=== PATIENT | female | born 2000 | race American Indian/Alaskan Native ===

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

== ENCOUNTER 2018-11-11 12:51 | Emergency (ER) | payer OTHER ==
[2018-11-11 13:00] VITALS: BP 146/88
--- NOTE | 2018-11-11 13:02 | Event Note ---
ED Screening Note Date of service: 11/11/18 Time: 12:58 ED Screening Note: 18 y/o female comes in for intermittent chest pain, Hives headache Took Advail. No chest pain in 2 days. This initial assessment/diagnostic orders/clinical plan/treatment(s) is/are subject to change based on patients health status, clinical progression and re- assessment by fellow clinical providers in the ED. Further treatment and workup at subsequent clinical providers discretion. Patient/guardian urged not to elope from the ED as their condition may be serious if not clinically assessed and managed. Initial orders include:
--- NOTE | 2018-11-11 13:29 | XRay Report ---
CHEST 1 VIEW 11/11/2018 1:10 PM INDICATION / CLINICAL INFORMATION: Chest pain, shortness of breath. COMPARISON: None available. FINDINGS: SUPPORT DEVICES: None. HEART / MEDIASTINUM: No significant abnormality. LUNGS / PLEURA: No significant pulmonary or pleural abnormality. No pneumothorax. ADDITIONAL FINDINGS: No significant additional findings. IMPRESSION: 1. No acute findings. Signer Name: Elieser Holly MD Signed: 11/11/2018 1:24 PM Workstation Name: [id number]
--- NOTE | 2018-11-11 13:54 | Emergency Department Report ---
ED General Adult HPI - General Chief complaint: Headache Stated complaint: CHEST PAIN/HEADACHE/HIVES Time Seen by Provider: 11/11/18 13:50 Source: patient Mode of arrival: Ambulatory Limitations: No Limitations - History of Present Illness Initial comments: 18 y/o female comes in for intermittent chest pain, Hives headache Took Advail. No chest pain in 2 days. denies any chest pain, sob, n/v. -: Gradual Location: head Radiation: non-radiation Severity scale (0 -10): 5 Quality: aching Consistency: intermittent Improves with: none Worsens with: none Associated Symptoms: denies other symptoms Treatments Prior to Arrival: NSAID - Related Data Previous Rx's Medication Instructions Recorded Last Taken Type Ibuprofen [Motrin 600 MG tab] 600 mg PO Q8H PRN #30 tablet 12/23/16 Unknown Rx Ibuprofen [Motrin] 800 mg PO Q8HR PRN #12 tablet 11/11/18 Unknown Rx Prednisone [predniSONE 5 mg (6-Day 5 mg PO .TAPER #1 tab.ds.pk 11/11/18 Unknown Rx Pack, 21 Tabs)] Allergies Allergy/AdvReac Type Severity Reaction Status Date / Time No Known Allergies Allergy Unverified 12/23/16 14:28 ED Review of Systems ROS: Stated complaint: CHEST PAIN/HEADACHE/HIVES Other details as noted in HPI Comment: All other systems reviewed and negative Cardiovascular: chest pain Endocrine: denies: see HPI, excessive sweating Gastrointestinal: denies: nausea Genitourinary: denies: urgency Skin: rash Neurological: headache ED Past Medical Hx - Past Medical History Previous Medical History?: Yes Additional medical history: OBESITY - Surgical History Past Surgical History?: No - Family History Family history: no significant - Social History Smoking Status: Never Smoker Substance Use Type: Marijuana - Medications Home Medications: Home Medications Medication Instructions Recorded Confirmed Last Taken Type Ibuprofen [Motrin 600 MG tab] 600 mg PO Q8H PRN #30 tablet 12/23/16 Unknown Rx Ibuprofen [Motrin] 800 mg PO Q8HR PRN #12 tablet 11/11/18 Unknown Rx Prednisone [predniSONE 5 mg (6-Day 5 mg PO .TAPER #1 tab.ds.pk 11/11/18 Unknown Rx Pack, 21 Tabs)] ED Physical Exam - General Limitations: No Limitations General appearance: alert, in no apparent distress - Head Head exam: Present: atraumatic, normocephalic - Eye Eye exam: Present: normal appearance, PERRL, EOMI Pupils: Present: normal accommodation - ENT ENT exam: Present: normal exam - Neck Neck exam: Present: normal inspection - Respiratory Respiratory exam: Present: normal lung sounds bilaterally - Cardiovascular Cardiovascular Exam: Present: regular rate, normal rhythm - GI/Abdominal GI/Abdominal exam: Present: soft, normal bowel sounds - Extremities Exam Extremities exam: Present: normal inspection, full ROM - Back Exam Back exam: Present: normal inspection, full ROM - Neurological Exam Neurological exam: Present: alert, oriented X3 - Psychiatric Psychiatric exam: Present: normal affect - Skin Skin exam: Present: warm ED Course Vital Signs 11/11/18 12:58 Temperature 97.5 F L Pulse Rate 110 H Respiratory 18 Rate Blood Pressure 146/88 O2 Sat by Pulse 97 Oximetry Critical care attestation.: If time is entered above; I have spent that time in minutes in the direct care of this critically ill patient, excluding procedure time. ED Disposition Clinical Impression: Hives of unknown origin Headache Qualifiers: Headache type: tension-type Headache chronicity pattern: acute headache Intractability: not intractable Qualified Code(s): G44.209 - Tension-type headache, unspecified, not intractable Chest pain Qualifiers: Chest pain type: other chest pain Qualified Code(s): R07.89 - Other chest pain; R07.8 - Other chest pain Disposition: -01 TO HOME OR SELFCARE Is pt being admited?: No Does the pt Need Aspirin: No Condition: Stable Instructions: Chest Pain (ED) Prescriptions: Ibuprofen [Motrin] 800 mg PO Q8HR PRN #12 tablet PRN Reason: Headache Prednisone [predniSONE 5 mg (6-Day Pack, 21 Tabs)] 5 mg PO .TAPER #1 tab.ds.pk
== END 2018-11-11 14:00 | disposition home or self-care (01) ==
LOC: ED 12:51
DX: L50.9 Urticaria, unspecified (principal); R07.9 Chest pain, unspecified; R51 Headache; F12.90 Cannabis use, unspecified, uncomplicated; Z79.899 Other long term (current) drug therapy
CPT/HCPCS: 71046; 99283

== ENCOUNTER 2019-12-22 11:14 | Emergency (ER) | payer OTHER ==
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
[2019-12-22 12:10] VITALS: BP 146/87
--- NOTE | 2019-12-22 12:54 | XRay Report ---
RIGHT FOOT 2 VIEW(S) INDICATION / CLINICAL INFORMATION: MAIN COMPARISON: None available. FINDINGS: BONES / JOINT(S): No acute fracture or subluxation. No significant arthritis. SOFT TISSUES: No significant abnormality. ADDITIONAL FINDINGS: None. Signer Name: Mane Sidhu MD Signed: 12/22/2019 12:49 PM Workstation Name: [id number]
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
== END 2019-12-22 15:22 | disposition home or self-care (01) ==
LOC: ED 11:14
DX: S97.81XA Crushing injury of right foot, initial encounter (principal); Z79.1 Long term (current) use of non-steroidal anti-inflammatories (NSAID); Z79.899 Other long term (current) drug therapy; V03.90XA Pedestrian on foot injured in collision with car, pick-up truck or van, unspecified whether traffic or nontraffic accident, initial encounter; Y93.89 Activity, other specified; Y92.410 Unspecified street and highway as the place of occurrence of the external cause; Y99.8 Other external cause status

== ENCOUNTER 2020-11-28 16:17 | Emergency (ER) | payer OTHER ==
[2020-11-29 00:45] VITALS: BP 170/90
== END 2020-11-29 01:40 | disposition home or self-care (01) ==
LOC: ED 16:17
DX: M54.5 Low back pain (principal); N39.0 Urinary tract infection, site not specified; E66.9 Obesity, unspecified
CPT/HCPCS: 36415; 80053; 81001; 84703; 85025; 99283; 99284

== ENCOUNTER 2021-03-14 16:31 | Emergency (ER) | payer OTHER ==
[2021-03-14 16:39] VITALS: BP 142/83
--- NOTE | 2021-03-14 17:34 | Emergency Department Report ---
ED General Adult HPI - General Chief complaint: Urogenital-Female Stated complaint: STD Testing Source: patient Mode of arrival: Ambulatory Limitations: No Limitations - History of Present Illness Initial comments: 21-year-old -[place] female patient without past medical history presents for STI screening. Patient reports that she recently found out her partner is sexually active with other women and is wanting to get checked out today. She denies any vaginal discharge, dyspareunia, vaginal bleeding, dysuria/hematuria/urinary frequency, or abdominal/pelvic pain. No fever/chills/sweats, throat pain, or swollen painful joints per patient. Severity scale (0 -10): 0 - Related Data Previous Rx's Medication Instructions Recorded Last Taken Type Ibuprofen [Motrin 600 MG tab] 600 mg PO Q8H PRN #30 tablet 12/23/16 Unknown Rx Prednisone [predniSONE 5 mg (6-Day 5 mg PO .TAPER #1 tab.ds.pk 11/11/18 Unknown Rx Pack, 21 Tabs)] hydrOXYzine HCL [Atarax] 25 mg PO Q6HR PRN #20 tablet 12/22/19 Unknown Rx predniSONE [Deltasone] 50 mg PO QDAY #7 tab 12/22/19 Unknown Rx Ibuprofen [Motrin 800 MG tab] 800 mg PO Q8HR PRN #30 tablet 11/29/20 Unknown Rx Ondansetron [Zofran Odt] 4 mg PO Q8HR PRN #15 tab.rapdis 11/29/20 Unknown Rx Sulfamethoxazole/Trimethoprim 1 each PO Q12H #20 tablet 11/29/20 Unknown Rx [Bactrim DS TAB] Allergies Allergy/AdvReac Type Severity Reaction Status Date / Time No Known Allergies Allergy Unverified 12/23/16 14:28 ED Review of Systems ROS: Stated complaint: STD Testing Other details as noted in HPI Constitutional: denies: diaphoresis, fever, malaise Gastrointestinal: denies: abdominal pain Genitourinary: denies: urgency, dysuria, frequency, hematuria, discharge, abnormal menses, dyspareunia Skin: denies: rash, lesions, change in color Hematological/Lymphatic: denies: swollen glands ED Past Medical Hx - Past Medical History Additional medical history: OBESITY - Social History Smoking Status: Never Smoker Substance Use Type: None - Medications Home Medications: Home Medications Medication Instructions Recorded Confirmed Last Taken Type Ibuprofen [Motrin 600 MG tab] 600 mg PO Q8H PRN #30 tablet 12/23/16 Unknown Rx Prednisone [predniSONE 5 mg (6-Day 5 mg PO .TAPER #1 tab.ds.pk 11/11/18 Unknown Rx Pack, 21 Tabs)] hydrOXYzine HCL [Atarax] 25 mg PO Q6HR PRN #20 tablet 12/22/19 Unknown Rx predniSONE [Deltasone] 50 mg PO QDAY #7 tab 12/22/19 Unknown Rx Ibuprofen [Motrin 800 MG tab] 800 mg PO Q8HR PRN #30 tablet 11/29/20 Unknown Rx Ondansetron [Zofran Odt] 4 mg PO Q8HR PRN #15 tab.rapdis 11/29/20 Unknown Rx Sulfamethoxazole/Trimethoprim 1 each PO Q12H #20 tablet 11/29/20 Unknown Rx [Bactrim DS TAB] ED Physical Exam - General Limitations: No Limitations General appearance: alert, in no apparent distress - Head Head exam: Present: atraumatic, normocephalic - Eye Eye exam: Present: normal appearance - Respiratory Respiratory exam: Absent: respiratory distress - Cardiovascular Cardiovascular Exam: Present: regular rate - GI/Abdominal GI/Abdominal exam: Absent: tenderness - Neurological Exam Neurological exam: Present: alert, oriented X3 - Psychiatric Psychiatric exam: Present: normal affect, normal mood - Skin Skin exam: Present: warm, dry, intact, normal color. Absent: rash ED Course Vital Signs 03/14/21 16:38 Temperature 98.2 F Pulse Rate 73 Respiratory 16 Rate Blood Pressure 142/83 [Right] O2 Sat by Pulse 100 Oximetry ED Medical Decision Making - Medical Decision Making 21-year-old -[place] female patient without past medical history presents for STI screening. Patient reports that she recently found out her partner is sexually active with other women and is wanting to get checked out today. She denies any vaginal discharge, dyspareunia, vaginal bleeding, dysu darrell/hematuria/urinary frequency, or abdominal/pelvic pain. No fever/chills/sweats, throat pain, or swollen painful joints per patient. Given patient is asymptomatic, I recommend she follows up with [facility], PCP, or the health department for STI screening. She is otherwise well-appearing, her vitals are within normal limits, she is stable for discharge home. Discussed in detail with patient signs and symptoms that should prompt immediate return to the ED, she verbalizes understanding. Critical care attestation.: If time is entered above; I have spent that time in minutes in the direct care of this critically ill patient, excluding procedure time. ED Disposition Clinical Impression: Screen for STD (sexually transmitted disease) Disposition: HOME / SELF CARE / HOMELESS Is pt being admited?: No Condition: Stable Instructions: Preventing Sexually Transmitted Infections, Adult Referrals: [facility] [Provider Group] - 3-5 Days [facility] [Referring] - 3-5 Days
== END 2021-03-14 17:58 | disposition home or self-care (01) ==
LOC: ED 16:31
DX: Z11.3 Encounter for screening for infections with a predominantly sexual mode of transmission (principal); Z79.899 Other long term (current) drug therapy
CPT/HCPCS: 99282